=== PATIENT | male | born 2000 | race Caucasian/White ===

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

== ENCOUNTER 2023-05-16 16:26 | Emergency (ER) | payer BC ==
[2023-05-16] MEDS ORDERED: Sucralfate Suspension 1 GM/10 ML Cup PO ONE (16:59)
[2023-05-16 17:28] LABS: BASOPHILS PERCENT AUTO 1.2 % (0.1-1.2); EOSINOPHILS ABSOLUTE AUTO 1.15 K/mm3 (0.04-0.54); EOSINOPHILS PERCENT AUTO 14.2 (0.8-7.0); HEMATOCRIT 42.7 % (40.1-51.0); HEMOGLOBIN 14.5 gm/dl (13.7-17.5); IMMATURE GRAN ABSOLUTE AUTO 0.01 K/mm3 (0.00-0.10); IMMATURE GRAN PERCENT AUTO 0.1 % (<=1.0); LYMPHOCYTES ABSOLUTE AUTO 2.14 K/mm3 (1.32-3.57); LYMPHOCYTES PERCENT AUTO 26.5 % (21.8-53.1); MEAN CORPUSCULAR HEMOGLOBIN 29.7 pg (25.7-32.2); MEAN CORPUSCULAR VOLUME 87.5 fl (79.0-92.2); MEAN PLATELET VOLUME 11.1 fl (9.4-12.3); MONOCYTES ABSOLUTE AUTO 0.54 K/mm3 (0.30-0.82); MONOCYTES PERCENT AUTO 6.7 % (5.3-12.2); NEUTROPHILS ABSOLUTE AUTO 4.14 K/mm3 (1.78-5.38); NEUTROPHILS PERCENT AUTO 51.3 % (34.0-67.9); PLATELET COUNT,PLT 264 K/mm3 (163-337); RED BLOOD CELL COUNT 4.88 M/mm3 (4.63-6.08); WHITE BLOOD CELL COUNT,WBC 8.08 K/mm3 (4.23-9.07)
[2023-05-16 17:53] LABS: A/G RATIO 1.3 (1-2); ALBUMIN 4.3 g/dl (3.4-5.0); ANION GAP 13.8 (5-15); BILIRUBIN TOTAL 0.3 mg/dL (0.2-1.0); CALCIUM 9.2 mg/dL (8.5-10.1); CREATININE 0.8 mg/dL (0.7-1.3); EST CRCL DRUG DOSING (CG) 147.29 mL/min; POTASSIUM,K 3.8 mEq/L (3.5-5.1); PROTEIN TOTAL,TP 7.7 g/dl (6.4-8.2)
== END 2023-05-16 19:03 | disposition home or self-care (01) ==
LOC: JD.ED 16:26
DX: K21.9 Gastro-esophageal reflux disease without esophagitis (principal); F17.210 Nicotine dependence, cigarettes, uncomplicated; Z88.1 Allergy status to other antibiotic agents; Z88.8 Allergy status to other drugs, medicaments and biological substances
CPT/HCPCS: 36415; 71046; 80053; 84484; 85025; 85379; 93005; 99285; A9270; 93010; 99284

== ENCOUNTER 2024-09-22 18:35 | Emergency (ER) | payer OTHER ==
[2024-09-22] MEDS: Diphtheria,Pertussis(Acell),Tetanus Vaccine 0.5 ML Syringe IM ONE (19:43)
== END 2024-09-22 19:48 | disposition home or self-care (01) ==
LOC: JD.ED 18:35
DX: S90.412A Abrasion, left great toe, initial encounter (principal); J45.909 Unspecified asthma, uncomplicated; Z88.8 Allergy status to other drugs, medicaments and biological substances; W00.0XXA Fall on same level due to ice and snow, initial encounter; Y93.01 Activity, walking, marching and hiking; Z23 Encounter for immunization
CPT/HCPCS: 90471; 90715; 99282; 99283-25